=== PATIENT | male | born 2000 | race African-American/Black ===

== ENCOUNTER 2024-06-16 23:48 | Emergency (ER) | payer MEDICAID ==
[~2024-06-16] VITALS: Ht 175.3 cm; Wt 75.0 kg
[2024-06-16 23:57] VITALS: O2SAT 100
[2024-06-17 00:26] VITALS: BP 148/91; PULSE 59; RESP 16; TEMP 36.7; O2SAT 98
[2024-06-17 01:10] LABS: BASOPHILS % 0.3 % (0.0-2.0); CHLORIDE 107 mEq/L (98-107); EOSINOPHILS % 3.4 % (0.0-5.0); HEMATOCRIT. 37.5 % (42.0-52.0); HEMOGLOBIN. 12.1 g/dL (14.0-18.0); LYMPHOCYTES % 48.9 % (20.0-50.0); MEAN CORPUSCULAR HGB CONC 32.2 g/dL (31.0-37.0); MEAN CORPUSCULAR VOLUME 80.7 fL (80.0-94.0); MEAN PLATELET VOLUME 9.6 fl (7.4-10.4); MONOCYTES % 7.2 % (2.0-8.0); NEUTROPHILS % 40.2 % (40.0-76.0); PLATELET 107 x1000/uL (130-400); RED BLOOD CELL COUNT 4.64 mill/uL (4.7-6.1); RED CELL DISTRIBUTION WIDTH 13.8 % (11.6-14.6); SODIUM 141 mEq/L (136-145); WHITE BLOOD COUNT 3.9 x1000/uL (4.5-11.0)
[2024-06-17 01:11] LABS: CARBON DIOXIDE 21 mEq/L (21-32)
[2024-06-17 01:12] LABS: CALCIUM 9.7 mg/dL (8.7-10.4)
[2024-06-17 01:16] LABS: GLUCOSE 95 mg/dL (70-105)
[2024-06-17] MEDS: ONDANSETRON HCL 4MG/2ML INJ IV STA (01:16)
[2024-06-17 01:17] LABS: UREA NITROGEN BLOOD 6 mg/dL (9-23)
[2024-06-17 01:18] LABS: ALANINE AMINOTRANSFERASE 27 IU/L (10-49); ALBUMIN 4.5 g/dL (3.2-4.8); ASPARTATE AMINOTRANSFERASE 30 IU/L (<34)
[2024-06-17 01:19] LABS: BILIRUBIN DIRECT 0.3 mg/dL (<=3.0)
== END 2024-06-17 02:25 | disposition home or self-care (01) ==
LOC: ER 06-17 00:24
DX: T51.0X1A Toxic effect of ethanol, accidental (unintentional), initial encounter (principal); F10.129 Alcohol abuse with intoxication, unspecified; F19.90 Other psychoactive substance use, unspecified, uncomplicated; X58.XXXA Exposure to other specified factors, initial encounter; Y93.89 Activity, other specified; Y92.89 Other specified places as the place of occurrence of the external cause; Y99.8 Other external cause status; Y90.9 Presence of alcohol in blood, level not specified
CPT/HCPCS: 80076; 80048; 80320; 85025; 36415; 99283; J2405; G0480